=== PATIENT | female | born 1980 | race Two or more races ===

== ENCOUNTER 2018-08-04 06:19 | Inpatient (IN) | payer MEDICAID ==
[~2018-08-04 06:19] MED LIST: Clindamycin in 0.9 % Sod Chlor 900 MG/50 ML BAG IV ONE; Lactated Ringers 1,000 ML IV SCH; Sodium Chloride 0.9% 10 ML Syringe FLUSH PRN
[2018-08-04] MEDS ORDERED: Gentamicin 400 MG in Sodium Chloride 0.9% 100 ML IV ONE (07:00)
[2018-08-04] MEDS ORDERED: Citric Acid/Sodium Citrate Solution 30 ML Cup ONE (07:10)
[2018-08-04] MEDS ORDERED: Scopolamine 1.5 MG Transdermal Patch ONE (07:11)
[2018-08-04] MEDS ORDERED: Citric Acid/Sodium Citrate Solution 30 ML Cup PO ONE (07:39)
[2018-08-04] MEDS ORDERED: Scopolamine 1.5 MG Transdermal Patch TOP ONE (07:39)
[2018-08-04] MEDS ORDERED: Naloxone 0.4 MG/ML SDV IVPUSH PRN (08:54)
[2018-08-04] MEDS ORDERED: diphenhydrAMINE 50 MG/ML SDV IVPUSH PRN (08:54)
[2018-08-04] MEDS ORDERED: ePHEDrine 50 MG/ML SDV IVPUSH PRN (08:54)
[2018-08-04] MEDS ORDERED: Midazolam 1 MG/ML 2 ML SDV IV ONE (09:00)
[2018-08-04] MEDS ORDERED: Morphine PF 10 MG/10 ML SDV IV ONE (09:00)
[2018-08-04] MEDS ORDERED: Oxytocin 10 Units/1 ML SDV IV ONE ×2 (09:00)
[2018-08-04] MEDS ORDERED: Lactated Ringers 1,000 ML IV ONE (09:00)
[2018-08-04] MEDS ORDERED: fentaNYL 100 MCG/2 ML SDV IV ONE (09:00)
--- NOTE | 2018-08-04 11:02 | OR ---
DATE OF OPERATION: 08/04/2018 SURGEON: Randolph Bowen MD PROCEDURE PERFORMED: Repeat lower uterine segment . INDICATION: Previous . POSTOPERATIVE DIAGNOSES: 1. Repeat lower uterine segment section. 2. Advanced maternal age. 3. Gastroesophageal reflux disease. DETECTIVE CAPTAIN: Dr. Vaughn (needed to assist because of advanced maternal age and previous scar). OPERATIVE NOTE: The patient accepted the risks and benefits of the procedure. Spinal anesthesia was placed. The patient was prepped in the usual sterile fashion for a incision. An incision was made along the previous scar in the lower abdomen in the Pfannenstiel fashion. This was carried down to the underlying fascia, cauterizing all the blood vessels encountered. This was scored in the middle and carried laterally with Evans scissors. After tenting the upper portion with Gavino clamps, the rectus fascia was sharply dissected from the muscle. This was repeated in the inferior portion. The peritoneum was entered bluntly, stretched, and a bladder blade inserted. A lower uterine segment bladder reflection was placed on the visceral peritoneum and an incision was made with a scalpel and stretched with the surgeon's fingers in a cephalad- caudad fashion. The baby was delivered atraumatically. One nuchal cord was reduced. The baby's cord was clamped and baby handed to the awaiting nurses. After obtaining cord blood, the placenta was removed by traction, and the uterus exteriorized. This was cleaned of all debris, clots, and products of conception. The uterus was closed in two layers using 1-0 Vicryl with no complications. After irrigation, the uterus was returned to the maternal abdomen. The rectus fascia was closed in a continuous fashion with 0 Vicryl. Thereafter, the subcutaneous tissue and skin were closed with 3-0 Vicryl. ESTIMATED BLOOD LOSS: About 4-500 mL. COMPLICATIONS: None. PRODUCT: A live male infant with scores of 9 and 9. /[id number] JADEIL/KIAN RAY
[2018-08-04] MEDS: Lactated Ringers 1,000 ML IV SCH ×4 (11:24→23:27)
[2018-08-04] MEDS: Ketorolac 30 MG/ML SDV IM PRN (18:11)
[2018-08-05] MEDS: Ketorolac 30 MG/ML SDV IM PRN (01:17)
[2018-08-05] MEDS: Lactated Ringers 1,000 ML IV SCH (03:38)
[2018-08-05] MEDS: Ibuprofen 600 MG Tab PO PRN ×2 (09:49→17:45)
[2018-08-05] MEDS: Acetaminophen/HYDROcodone 325-5 MG Tab PO PRN ×2 (11:14→20:56)
[2018-08-05] MEDS: Docusate Sodium 100 MG Cap PO SCH ×2 (11:15→20:40)
[2018-08-05] MEDS ORDERED: Polyethylene Glycol 3350 Powder 238 GM Bot PO ONE (17:29)
--- NOTE | 2018-08-05 17:29 | PCM.PNPP ---
- General Info Date of Service: 08/05/18 Subjective Update: Doing well. Functional Status: Reports: Pain Controlled, Tolerating Diet - Review of Systems General: Reports: No Symptoms HEENT: Reports: No Symptoms Gastrointestinal: Reports: Constipation - Patient Data Vital Signs - Most Recent: Last Vital Signs Temp 97.5 F 08/05/18 08:00 Pulse 68 08/05/18 08:00 Resp 18 08/05/18 08:00 BP 116/72 08/05/18 08:00 Pulse Ox 95 08/05/18 08:00 Weight - Most Recent: 106.594 kg I&O - Last 24 Hours: Intake & Output 08/05/18 08/05/18 08/05/18 06:59 14:59 22:59 Intake Total 1230 1750 Output Total 350 1200 Balance 880 550 Lab Results - Last 24 Hours: Laboratory Results - last 24 hr 08/05/18 Range/Units 06:25 WBC 9.4 (4.5-12.0) X10-3/uL RBC 3.31 (3.23-5.20) x10(6)uL Hgb 9.4 L (11.5-15.5) g/dL Hct 28.9 L (30.0-51.3) % MCV 87.4 (80-96) fL MCH 28.5 (27.7-33.6) pg MCHC 32.6 (32.2-35.4) g/dL RDW 13.4 (11.5-15.5) % Plt Count 171 (125-369) X10(3)uL MPV 8.3 (7.4-10.4) fL Neut % (Auto) 71.9 (46-82) % Lymph % (Auto) 19.8 (13-37) % [place] % (Auto) 6.6 (4-12) % Eos % (Auto) 1 (1.0-5.0) % Baso % (Auto) 1 (0-2) % Neut # (Auto) 6.8 (1.6-8.3) # Lymph # (Auto) 1.9 (0.6-5.0) # [place] # (Auto) 0.6 (0.0-1.3) # Eos # (Auto) 0.1 (0.0-0.8) # Baso # (Auto) 0.0 (0.0-0.2) # Med Orders - Current: Current Medications Hydrocodone Bitart/Acetaminophen ([place] 325-5 Mg) 1 tab PO Q6H PRN PRN Reason: Breakthrough Pain Last Admin: 08/05/18 11:14 Dose: 1 tab Diphenhydramine HCl (Benadryl) 25 mg IVPUSH Q6H PRN PRN Reason: Itching or Nausea Last Admin: 08/04/18 11:45 Dose: 25 mg Docusate Sodium (Colace) 100 mg PO BID GILBERTO Last Admin: 08/05/18 11:15 Dose: 100 mg Ephedrine Sulfate (Ephedrine Sulfate) 5 mg IVPUSH ASDIRECTED PRN PRN Reason: Other Ibuprofen (Motrin) 600 mg PO Q6H PRN PRN Reason: Pain Last Admin: 08/05/18 09:49 Dose: 600 mg Miscellaneous Information (Remove Patch) 1 ea TRDERM ONETIME ONE Stop: 08/07/18 08:01 Naloxone HCl (Narcan) 0.1 mg IVPUSH ONETIME PRN PRN Reason: Respiratory Depression Sodium Chloride (Saline Flush) 10 ml FLUSH ASDIRECTED PRN PRN Reason: Keep Vein Open Last Admin: 08/04/18 06:55 Dose: 10 ml Discontinued Medications Citric Acid/Sodium Citrate (Bicitra Solution) Confirm Administered Dose 30 ml .ROUTE .STK-MED ONE Stop: 08/04/18 07:11 Last Admin: 08/04/18 08:45 Dose: Not Given Citric Acid/Sodium Citrate (Bicitra Solution) 30 ml PO ONETIME ONE Stop: 08/04/18 07:40 Last Admin: 08/04/18 07:47 Dose: 30 ml Clindamycin/Sodium Chloride (Cleocin In Ns) 900 mg in 50 mls @ 50 mls/hr IV ONETIME ONE Stop: 08/04/18 06:59 Last Admin: 08/04/18 06:55 Dose: 50 mls/hr Gentamicin Sulfate 400 mg/ (Sodium Chloride) 110 mls @ 195.556 mls/hr IV ONETIME ONE Stop: 08/04/18 07:33 Last Admin: 08/04/18 07:35 Dose: 195.556 mls/hr Lactated Ringer's (Ringers, Lactated) 1,000 mls @ 125 mls/hr IV ASDIRECTED [facility] Last Admin: 08/04/18 06:55 Dose: 125 mls/hr Lactated Ringer's (Ringers, Lactated) 1,000 mls @ 250 mls/hr IV ASDIRECTED [facility] Last Admin: 08/05/18 03:38 Dose: 250 mls/hr Ketorolac Tromethamine (Toradol) 30 mg IM Q6H PRN PRN Reason: Pain Last Admin: 08/05/18 01:17 Dose: 30 mg Scopolamine (Transderm-Scop) Confirm Administered Dose 1.5 mg .ROUTE .STK-MED ONE Stop: 08/04/18 07:12 Last Admin: 08/04/18 08:46 Dose: Not Given Scopolamine (Transderm-Scop) 1.5 mg TOP ONETIME ONE Stop: 08/04/18 07:40 Last Admin: 08/04/18 07:47 Dose: 1.5 mg - Interaction Disposition, : in Room with Family Support Person: Significant Other - Recovery Exam Fundal Tone: Firm Fundal Level: 1 Fingerbreadths Above Umbilicus Fundal Placement: Midline Lochia Amount: Small, Moderate Lochia Color: Rubra/Red Episiotomy/Laceration: None Bladder Status: Indwelling Catheter in Place - Exam General: Alert HEENT: Pupils Equal Neck: Supple Extremities: No Pedal Edema Skin: Warm Wound/Incisions: Healing Well - Problem List & Annotations (1) Delivery by (planned) section occurring after 37 completed weeks of gestation but before 39 completed weeks gestation due to (spontaneous) onset of labor, with mention of complication SNOMED Code(s): 26117071076841952, 524443965, 24603269360045164 Code(s): O75.82 - ONSET LABOR 37-39 WEEKS, W DEL BY (PLANNED) SECTION Status: Acute Current Visit: Yes (2) Constipated SNOMED Code(s): 00927413 Code(s): K59.00 - CONSTIPATION, UNSPECIFIED Status: Acute Current Visit: Yes Qualifiers: Constipation type: slow transit constipation Qualified Code(s): K59.01 - Slow transit constipation - Problem List Review Problem List Initiated/Reviewed/Updated: Yes - My Orders Last 24 Hours: My Active Orders 08/05/18 08:48 Peripheral IV Discontinue [OM.PC] Routine 08/05/18 09:01 Ibuprofen [Motrin] 600 mg PO Q6H PRN 08/05/18 09:17 Acetaminophen/HYDROcodone [[place] 325-5 MG] 1 tab PO Q6H PRN 08/05/18 10:30 Docusate Sodium [Colace] 100 mg PO BID 08/07/18 08:00 Remove Patch 1 milagros BRANNON ONETIME ONE - Plan Plan:: Output good. DC IVF. Remove [place]rier. Colace prn
[2018-08-05] MEDS ORDERED: Polyethylene Glycol 3350 Powder 17 GM Packet PO ONE (18:29)
[2018-08-06] MEDS: Ibuprofen 600 MG Tab PO PRN
[2018-08-06] MEDS: Acetaminophen/HYDROcodone 325-5 MG Tab PO PRN (02:50)
--- NOTE | 2018-08-06 08:00 | PCM.PNPP ---
- General Info Date of Service: 08/06/18 Subjective Update: Doing well. Functional Status: Reports: Tolerating Diet - Review of Systems General: Reports: No Symptoms HEENT: Reports: No Symptoms Pulmonary: Reports: No Symptoms Cardiovascular: Reports: No Symptoms Gastrointestinal: Reports: No Symptoms Genitourinary: Reports: No Symptoms Skin: Reports: No Symptoms Neurological: Reports: No Symptoms - General Info Date of Service: 08/06/18 - Patient Data Vital Signs - Most Recent: Last Vital Signs Temp 98 F 08/06/18 00:00 Pulse 73 08/06/18 00:00 Resp 20 08/06/18 00:00 BP 115/60 08/06/18 00:00 Pulse Ox 99 08/06/18 00:00 Weight - Most Recent: 106.594 kg I&O - Last 24 Hours: Intake & Output 08/05/18 08/06/18 08/06/18 22:59 06:59 14:59 Intake Total 500 Balance 500 Med Orders - Current: Current Medications Hydrocodone Bitart/Acetaminophen ([place] 325-5 Mg) 1 tab PO Q6H PRN PRN Reason: Breakthrough Pain Last Admin: 08/06/18 02:50 Dose: 1 tab Diphenhydramine HCl (Benadryl) 25 mg IVPUSH Q6H PRN PRN Reason: Itching or Nausea Last Admin: 08/04/18 11:45 Dose: 25 mg Docusate Sodium (Colace) 100 mg PO BID GILBERTO Last Admin: 08/05/18 20:40 Dose: 100 mg Ephedrine Sulfate (Ephedrine Sulfate) 5 mg IVPUSH ASDIRECTED PRN PRN Reason: Other Ibuprofen (Motrin) 600 mg PO Q6H PRN PRN Reason: Pain Last Admin: 08/06/18 00:00 Dose: 600 mg Measles/Mumps/Rubella Vaccine Live (M-M-R Ii Vaccine) 0.5 ml SUBCUT .ONCE ONE Stop: 08/06/18 10:01 Miscellaneous Information (Remove Patch) 1 ea TRDERM ONETIME ONE Stop: 08/07/18 08:01 Naloxone HCl (Narcan) 0.1 mg IVPUSH ONETIME PRN PRN Reason: Respiratory Depression Sodium Chloride (Saline Flush) 10 ml FLUSH ASDIRECTED PRN PRN Reason: Keep Vein Open Last Admin: 08/04/18 06:55 Dose: 10 ml Discontinued Medications Citric Acid/Sodium Citrate (Bicitra Solution) Confirm Administered Dose 30 ml .ROUTE .STK-MED ONE Stop: 08/04/18 07:11 Last Admin: 08/04/18 08:45 Dose: Not Given Citric Acid/Sodium Citrate (Bicitra Solution) 30 ml PO ONETIME ONE Stop: 08/04/18 07:40 Last Admin: 08/04/18 07:47 Dose: 30 ml Clindamycin/Sodium Chloride (Cleocin In Ns) 900 mg in 50 mls @ 50 mls/hr IV ONETIME ONE Stop: 08/04/18 06:59 Last Admin: 08/04/18 06:55 Dose: 50 mls/hr Gentamicin Sulfate 400 mg/ (Sodium Chloride) 110 mls @ 195.556 mls/hr IV ONETIME ONE Stop: 08/04/18 07:33 Last Admin: 08/04/18 07:35 Dose: 195.556 mls/hr Lactated Ringer's (Ringers, Lactated) 1,000 mls @ 125 mls/hr IV ASDIRECTED [facility] Last Admin: 08/04/18 06:55 Dose: 125 mls/hr Lactated Ringer's (Ringers, Lactated) 1,000 mls @ 250 mls/hr IV ASDIRECTED [facility] Last Admin: 08/05/18 03:38 Dose: 250 mls/hr Ketorolac Tromethamine (Toradol) 30 mg IM Q6H PRN PRN Reason: Pain Last Admin: 08/05/18 01:17 Dose: 30 mg Polyethylene Glycol (Miralax) 238 gm PO ONETIME ONE Stop: 08/05/18 17:30 Last Admin: 08/05/18 19:37 Dose: Not Given Polyethylene Glycol (Miralax) 17 gm PO ONETIME ONE Stop: 08/05/18 18:30 Last Admin: 08/05/18 18:53 Dose: 17 gm Scopolamine (Transderm-Scop) Confirm Administered Dose 1.5 mg .ROUTE .STK-MED ONE Stop: 08/04/18 07:12 Last Admin: 08/04/18 08:46 Dose: Not Given Scopolamine (Transderm-Scop) 1.5 mg TOP ONETIME ONE Stop: 08/04/18 07:40 Last Admin: 08/04/18 07:47 Dose: 1.5 mg - Infant Interaction Infant Disposition, : [place] in Room with Family Support Person: Significant Other - Recovery Exam Fundal Tone: Firm Fundal Level: At Umbilicus Fundal Placement: Midline Lochia Amount: Small Lochia Color: Rubra/Red Episiotomy/Laceration: None Bladder Status: Voiding Urinary Elimination: Voided - Exam General: Alert HEENT: Pupils Equal Neck: Supple Lungs: Clear to Auscultation Cardiovascular: Regular Rate GI/Abdominal Exam: Normal Bowel Sounds Extremities: Normal Inspection Skin: Warm, Dry Wound/Incisions: Healing Well Neurological: No New Focal Deficit - Problem List & Annotations (1) Delivery by (planned) section occurring after 37 completed weeks of gestation but before 39 completed weeks gestation due to (spontaneous) onset of labor, with mention of complication SNOMED Code(s): 16820988378714216, 803204723, 37162923073970337 Code(s): O75.82 - ONSET LABOR 37-39 WEEKS, W DEL BY (PLANNED) SECTION Status: Acute Current Visit: Yes (2) Constipated SNOMED Code(s): 52305883 Code(s): K59.00 - CONSTIPATION, UNSPECIFIED Status: Acute Current Visit: Yes Qualifiers: Constipation type: slow transit constipation Qualified Code(s): K59.01 - Slow transit constipation - Problem List Review Problem List Initiated/Reviewed/Updated: Yes - My Orders Last 24 Hours: My Active Orders 08/05/18 08:48 Peripheral IV Discontinue [OM.PC] Routine 08/05/18 09:01 Ibuprofen [Motrin] 600 mg PO Q6H PRN 08/05/18 09:17 Acetaminophen/HYDROcodone [[place] 325-5 MG] 1 tab PO Q6H PRN 08/05/18 10:30 Docusate Sodium [Colace] 100 mg PO BID 08/05/18 19:39 Vaccines to be Administered [RC] ASDIRECTED 08/06/18 10:00 Measles, Mumps & Rubella [M-M-R II Vaccine] 0.5 ml SUBCUT .ONCE ONE 08/07/18 08:00 Remove Patch 1 ea TRDERM ONETIME ONE - Plan Plan:: [place] home.
--- NOTE | 2018-08-06 08:11 | PCM.DCSUM1 ---
Discharge Summary - Hospital Course Diagnosis: Stroke: No - Discharge Data Discharge Date: 08/06/18 Discharge Disposition: Home, Self-Care 01 Condition: Good - Discharge Diagnosis/Problem(s) (1) Delivery by (planned) section occurring after 37 completed weeks of gestation but before 39 completed weeks gestation due to (spontaneous) onset of labor, with mention of complication SNOMED Code(s): 20966282315055257, 572648032, [id number] ICD Code: O75.82 - ONSET LABOR 37-39 WEEKS, W DEL BY (PLANNED) SECTION Status: Acute Current Visit: Yes (2) Constipated SNOMED Code(s): 24200920 ICD Code: K59.00 - CONSTIPATION, UNSPECIFIED Status: Acute Current Visit : Yes Qualifiers: Constipation type: slow transit constipation Qualified Code(s): K59.01 - Slow transit constipation - Discharge Plan Home Medications: Home Meds Multivitamin W/Iron, Minerals [Flintstones Complete] 1 each PO DAILY 08/01/18 [ History] Pantoprazole Sodium [Protonix] 40 mg PO DAILY 08/01/18 [History] Patient Handouts: Baby Blues, Delivery, Care After, Home Care Instructions for Mom, Care After Delivery, Hand Washing Referrals: Randolph Bowen MD [Primary Care Provider] - (6 weeks) - Discharge Summary/Plan Comment DC Time >30 min.: Yes - General Info Date of Service: 08/06/18 Subjective Update: Doing well. Functional Status: Reports: Pain Controlled, Tolerating Diet - Review of Systems General: Reports: No Symptoms HEENT: Reports: No Symptoms Pulmonary: Reports: No Symptoms Cardiovascular: Reports: No Symptoms Gastrointestinal: Reports: No Symptoms Genitourinary: Reports: No Symptoms Musculoskeletal: Reports: No Symptoms Skin: Reports: No Symptoms Neurological: Reports: No Symptoms Psychiatric: Reports: No Symptoms - Patient Data Vitals - Most Recent: Last Vital Signs Temp 98 F 08/06/18 00:00 Pulse 73 08/06/18 00:00 Resp 20 08/06/18 00:00 BP 115/60 08/06/18 00:00 Pulse Ox 99 08/06/18 00:00 Weight - Most Recent: 106.594 kg I&O - Last 24 hours: Intake & Output 08/05/18 08/06/18 08/06/18 22:59 06:59 14:59 Intake Total 500 Balance 500 Med Orders - Current: Current Medications Hydrocodone Bitart/Acetaminophen ([place] 325-5 Mg) 1 tab PO Q6H PRN PRN Reason: Breakthrough Pain Last Admin: 08/06/18 02:50 Dose: 1 tab Diphenhydramine HCl (Benadryl) 25 mg IVPUSH Q6H PRN PRN Reason: Itching or Nausea Last Admin: 08/04/18 11:45 Dose: 25 mg Docusate Sodium (Colace) 100 mg PO BID GILBERTO Last Admin: 08/05/18 20:40 Dose: 100 mg Ephedrine Sulfate (Ephedrine Sulfate) 5 mg IVPUSH ASDIRECTED PRN PRN Reason: Other Ibuprofen (Motrin) 600 mg PO Q6H PRN PRN Reason: Pain Last Admin: 08/06/18 00:00 Dose: 600 mg Measles/Mumps/Rubella Vaccine Live (M-M-R Ii Vaccine) 0.5 ml SUBCUT .ONCE ONE Stop: 08/06/18 10:01 Miscellaneous Information (Remove Patch) 1 ea TRDERM ONETIME ONE Stop: 08/07/18 08:01 Naloxone HCl (Narcan) 0.1 mg IVPUSH ONETIME PRN PRN Reason: Respiratory Depression Sodium Chloride (Saline Flush) 10 ml FLUSH ASDIRECTED PRN PRN Reason: Keep Vein Open Last Admin: 08/04/18 06:55 Dose: 10 ml Discontinued Medications Citric Acid/Sodium Citrate (Bicitra Solution) Confirm Administered Dose 30 ml .ROUTE .STK-MED ONE Stop: 08/04/18 07:11 Last Admin: 08/04/18 08:45 Dose: Not Given Citric Acid/Sodium Citrate (Bicitra Solution) 30 ml PO ONETIME ONE Stop: 08/04/18 07:40 Last Admin: 08/04/18 07:47 Dose: 30 ml Fentanyl (Sublimaze) 100 mcg IV .STK-MED ONE Stop: 08/04/18 09:01 Clindamycin/Sodium Chloride (Cleocin In Ns) 900 mg in 50 mls @ 50 mls/hr IV ONETIME ONE Stop: 08/04/18 06:59 Last Admin: 08/04/18 06:55 Dose: 50 mls/hr Gentamicin Sulfate 400 mg/ (Sodium Chloride) 110 mls @ 195.556 mls/hr IV ONETIME ONE Stop: 08/04/18 07:33 Last Admin: 08/04/18 07:35 Dose: 195.556 mls/hr Lactated Ringer's (Ringers, Lactated) 1,000 mls @ 125 mls/hr IV ASDIRECTED [facility] Last Admin: 08/04/18 06:55 Dose: 125 mls/hr Lactated Ringer's (Ringers, Lactated) 1,000 mls @ 250 mls/hr IV ASDIRECTED [facility] Last Admin: 08/05/18 03:38 Dose: 250 mls/hr Lactated Ringer's (Ringers, Lactated) 1,000 mls @ as directed IV .STK-MED ONE Stop: 08/04/18 09:01 Ketorolac Tromethamine (Toradol) 30 mg IM Q6H PRN PRN Reason: Pain Last Admin: 08/05/18 01:17 Dose: 30 mg Midazolam HCl (Versed 1 Mg/Ml) 2 mg IV .STK-MED ONE Stop: 08/04/18 09:01 Morphine Sulfate (Duramorph Pf) 0.2 mg IV .STK-MED ONE Stop: 08/04/18 09:01 Oxytocin (Pitocin) 10 unit IV .STK-MED ONE Stop: 08/04/18 09:01 Oxytocin (Pitocin) 20 unit IV .STK-MED ONE Stop: 08/04/18 09:01 Polyethylene Glycol (Miralax) 238 gm PO ONETIME ONE Stop: 08/05/18 17:30 Last Admin: 08/05/18 19:37 Dose: Not Given Polyethylene Glycol (Miralax) 17 gm PO ONETIME ONE Stop: 08/05/18 18:30 Last Admin: 08/05/18 18:53 Dose: 17 gm Scopolamine (Transderm-Scop) Confirm Administered Dose 1.5 mg .ROUTE .STK-MED ONE Stop: 08/04/18 07:12 Last Admin: 08/04/18 08:46 Dose: Not Given Scopolamine (Transderm-Scop) 1.5 mg TOP ONETIME ONE Stop: 08/04/18 07:40 Last Admin: 08/04/18 07:47 Dose: 1.5 mg
[2018-08-06] MEDS: Docusate Sodium 100 MG Cap PO SCH (09:05)
[2018-08-06] MEDS ORDERED: Measles, Mumps & Rubella Vaccine 0.5 ML SDV SUBCUT ONE (10:00)
== END 2018-08-06 10:10 | disposition home or self-care (01) | DRG 788 ==
LOC: FB.OB 06:19
PROVIDERS: ADMIT Family Medicine; ATTEND Family Medicine
PROC: 10D00Z1 Extraction of Products of Conception, Low, Open Approach (ICD-10-PCS; principal; 2018-08-04)
PROC: 6A550ZT Pheresis of Cord Blood Stem Cells, Single (ICD-10-PCS; 2018-08-04)
DX: O34.211 Maternal care for low transverse scar from previous cesarean delivery (principal); N85.8 Other specified noninflammatory disorders of uterus; O99.334 Smoking (tobacco) complicating childbirth; Z3A.38 38 weeks gestation of pregnancy; Z37.0 Single live birth; O99.62 Diseases of the digestive system complicating childbirth; K21.9 Gastro-esophageal reflux disease without esophagitis; Z88.0 Allergy status to penicillin; Z88.8 Allergy status to other drugs, medicaments and biological substances; O99.63 Diseases of the digestive system complicating the puerperium; K59.01 Slow transit constipation
CPT/HCPCS: 36415; 85025; 86850; 86900; 86901; 88307; 94150; A9270-GY; J1200; J1580; J1885; J2250; J2270; J2590; J3010; J3490; J7030; J7120